=== PATIENT | male | born 1995 | race Caucasian/White ===

== ENCOUNTER 2019-08-20 08:43 | Emergency (ER) | payer OTHER ==
[~2019-08-20] VITALS: Ht 180.3 cm; Wt 90.7 kg
[2019-08-20 08:46] VITALS: BP_SYST 135
--- NOTE | 2019-08-20 08:48 | NUR ---
Patient to ER bed 5 to gown for evaluation. Side rails up.
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
--- NOTE | 2019-08-20 08:53 | NUR ---
ER Dr. Dodge at bedside examining patient.
[2019-08-20] MEDS ORDERED: KETOROLAC TROMETHAMINE 60 MG/2 ML VIAL IM ONE (09:00)
[2019-08-20 09:55] VITALS: BP_SYST 135
--- NOTE | 2019-08-20 10:01 | NUR ---
Patient given written and verbal discharge instructions and verbalizes understanding. ER MD discussed with patient the results and treatment provided. Patient in stable condition. ID arm band removed. Rx of Naprosyn given. Patient educated on pain management and to follow up with PMD. Pain Scale 2/10. Opportunity for questions provided and answered. Medication side effect fact sheet provided.
== END 2019-08-20 10:01 | disposition home or self-care (01) ==
LOC: SED 08:43
DX: S13.4XXA Sprain of ligaments of cervical spine, initial encounter (principal); V49.9XXA Car occupant (driver) (passenger) injured in unspecified traffic accident, initial encounter; Y92.413 State road as the place of occurrence of the external cause; Y93.89 Activity, other specified; Y99.8 Other external cause status
CPT/HCPCS: 72040; 96372; 99283; J1885